=== PATIENT | female | born 2005 | race Caucasian/White ===

== ENCOUNTER 2023-12-09 21:40 | Outpatient (CLI) | payer BC, SELFPAY ==
[2023-12-09 21:46] VITALS: BP 146/92; PULSE 75
[2023-12-09 21:52] VITALS: BMI 40.1
[2023-12-09 22:02] VITALS: BP 137/81; PULSE 61
[2023-12-09 22:17] VITALS: BP 137/81; PULSE 61; RESP 15
== END 2023-12-09 22:23 | disposition home or self-care (01) ==
LOC: OPOB 21:40 → OBGYN 21:41
PROVIDERS: Visit Provider Family Medicine
DX: O36.8190 Decreased fetal movements, unspecified trimester, not applicable or unspecified (principal); Z3A.00 Weeks of gestation of pregnancy not specified
CPT/HCPCS: 59025; 99211

== ENCOUNTER 2023-12-14 00:50 | Inpatient (IN) | payer BC, SELFPAY ==
[2023-12-13 23:12] VITALS: BMI 40.2
[2023-12-14] MEDS: lactated ringers 1,000 ML 999 ML IV (00:55)
[2023-12-14] MEDS: ceFAZolin 2,000 MG in sodium chloride 0.9% (plus) 50 ML 100 MG IV (01:05)
[2023-12-14 01:07] LABS: Basophils # 0.1 10^3/uL (0.0-0.1); Basophils % 0.5 %; Eosinophils # 0.1 10^3/uL (0.0-0.8); Eosinophils % 0.5 %; Hematocrit 38.2 % (36-47); Lymphocytes # 4.8 10^3/uL (1.5-6.5); Lymphocytes % 28.5 %; Mean Corpuscular Hemoglobin 26.1 pg (27-33); Mean Corpuscular Volume 79.3 fl (85-98); Mean Platelet Volume 12.6 fL (7.4-10.4); Monocytes # 1.4 10^3/uL (0.2-0.9); Monocytes % 8.6 %; Neutrophils # 10.18 10^3/uL (1.8-8.0); Nucleated Red Blood Cells % 0 %; Platelet Count 280 10^3/cmm (157-399); Red Blood Count 4.82 10^6/uL (3.85-5.65); Red Cell Distribution Width 12.9 % (12.1-15.1); White Blood Count 16.71 10^3/uL (4.5-13.0)
[2023-12-14 01:12] VITALS: RESP 20
[2023-12-14] MEDS: fentaNYL 50 mcg/mL INJ 2mL IVP (01:12)
--- NOTE | 2023-12-14 01:54 | P.ANESUD_ITS ---
Pre-Anesthetic Update Pre-Anesthetic Assessment: Date of Surgery/Procedure: 12/14/23 Preop Lanie gnosis: labor pains Proposed Procedure: epidural Any changes to Pre-Anesthetic Assessment?: No Labs Last 48hrs: Short CBC 12/14/23 Range/Units 00:40 WBC 16.71 H (4.5-13.0) 10^3/ uL Hgb 12.60 (12.4-14.8) g/dL Hct 38.2 (36-47) % MCV 79.3 L (85-98) fl Plt Count 280 (157-399) 10^3/c mm Neut % (Auto) 61.0 % Neut # (Auto) 10.18 H (1.8-8.0) 10^3/u L Vitals: Respiratory Rate 20 H 12/14/23 01:12 Respiratory Effort Spontaneous, Non- Labored 12/14/23 01:12 Respiratory Depth Normal 12/14/23 01:12 Respiratory Patter n Normal 12/14/23 01:12 Exam: Pre-Anes Outpt Exam: alert, oriented x 3, clear to auscultation bilaterally and regular rate & rhythm Cardiac Studies: No Data to Display
[2023-12-14] MEDS: ROPivacaine syringe 100 MG/50 ML SYRINGE 10 MG EPIDURAL (02:30)
--- NOTE | 2023-12-14 02:38 | P.ANES_ITS ---
Anesthesia Procedures Procedure/Date: 12/14/23 epidural Procedure Narrative: epidural complete on second attempt, bolus given, epidural pump initiated with REFRIGERATOR ROOM CLERK education given, vitals taken during procedure and satisfactory throughout, patient admits to decrease pain, report of procedure to OB RN Epidural: Time Out Performed: Yes Consents Signed: Procedure Consent Consent: requested by attending/covering physician, from patient, risks and benefits reviewed and patient agrees to proceed Lumbar Level: L3-L4 Epidural position: sitting Epidural procedure: sterile prep of area, 1% lidocaine to numb the area (3 mL), 18 g needle, negative for paresthesia passed, neg for paresthesia, test dose given, 1.5% xylocaine 1:200k epi (5 mL), 0.2% Ropivacaine bolus ml (5 mL), placed PCEA, no systemic response, sterile dressing applied, L.U.D. no apparent complications and 0.2% Ropiavacaine @ mls/hr (13 mL/hr)
[2023-12-14] MEDS: dextrose 5%-lactated ringers 1,000 ML 125 ML IV (03:00)
--- NOTE | 2023-12-14 04:35 | PM.OPHPUD ---
Labor & Delivery H&P Update Date of Procedure: December 14, 2023 Date H&P Performed: 12/11/23 Admission Diagnosis: Preop diagnosis: labor pains
--- NOTE | 2023-12-14 04:36 | PM.DELIVERY ---
Delivery Note: Date of delivery: December 14, 2023 Estimated blood loss (mL): 175 Pre-Delivery Course: labs: Blood type B+ antibody negative, hepatitis B nonreactive, hepatitis C nonreactive, HIV nonreactive, rubella immune, GC chlamydia negative, she passed her glucose tolerance test, she was GBS positive. Rupture membranes was approximately 3 hours prior to delivery. She received 1 dose of Ancef prior to delivery. Delivery: This is a 18-year-old G1, P0 at 38 weeks 4 days gestation who presented to labor and delivery in active labor. She had spontaneous rupture of membranes with clear fluid. She received an epidural for pain management. Her labor progressed rather quickly and she had a normal spontaneous vaginal delivery of a viable male weight 3270 g Apgars 8 and 9 over an intact perineum. The infant was suctioned at delivery and placed on the mother's chest. The cord was clamped and cut. The placenta was delivered grossly intact and normal to inspection. There was a first-degree vaginal laceration that was sutured using 3-0 chromic. Mother and were doing well after delivery. Coding Level of Care Code Acute Code for Chg Fwd
--- NOTE | 2023-12-14 07:11 | PC.NURSE ---
See Centricity for vital signs
[2023-12-14] MEDS: prenatal vitamin Capsule 1 CAP PO (08:55)
[2023-12-14] MEDS: ibuprofen 800 mg tablet PO ×3 (08:55→21:34)
[2023-12-14] MEDS: docusate sodium 100 mg Capsule PO ×2 (08:56→18:18)
[2023-12-14 09:15] VITALS: BP 149/81; PULSE 70; RESP 18; TEMP 37.2; O2SAT 97
[2023-12-14 10:15] VITALS: BP 146/82; PULSE 52; RESP 16; TEMP 37.7; O2SAT 96
[2023-12-14 12:04] LABS: Amphetamines Screen Urine Negative (Negative); Barbiturates Screen Urine Negative (Negative); Benzodiazepines Screen Urine Negative (Negative); Cocaine Screen Urine Negative (Negative); Opiate Screen Urine Negative (Negative); PCP Screen Urine Negative (Negative); THC Screen Urine Negative (Negative)
[2023-12-14 12:46] LABS: Rapid Plasma Reagin Syphilis Nonreactive (Nonreactive)
[2023-12-14 14:15] VITALS: BP 150/74; PULSE 59; RESP 16; TEMP 37.4; O2SAT 95
--- NOTE | 2023-12-14 14:17 | ANE.PACU2 ---
Inpatient post-anesthesia follow up: Airway intact: Yes Vital signs: Temperature 100 F Pulse Rate 52 Respiratory Rate 16 Blood Pressure 146/82 Pulse Oximetry 96 Oxygen Delivery Me thod Room Air Oxygen Flow Rate Fraction of Inspir ed Oxygen Hydration adequate: Yes Nausea and vomiting: No Pain level: 1 Mental status: Baseline Additional Comments: States epidural never really provided any relief Epidural Start/End: Epidural Start Date: 12/14/23 Epidural Start Time: 02:03 Epidural End Date: 12/14/23 Epidural End Time: 04:36
[2023-12-14 17:09] LABS: Hematocrit 32.5 % (36-47); Mean Corpuscular HGB Conc 32.9 g/dL (30-55); Mean Corpuscular Hemoglobin 26.8 pg (27-33); Mean Corpuscular Volume 81.5 fl (85-98); Mean Platelet Volume 12.9 fL (7.4-10.4); Platelet Count 158 10^3/cmm (157-399); Red Blood Count 3.99 10^6/uL (3.85-5.65); Red Cell Distribution Width 13.1 % (12.1-15.1); White Blood Count 17.09 10^3/uL (4.5-13.0)
[2023-12-14 22:12] VITALS: BP 138/86; PULSE 76; RESP 16; TEMP 36.7; O2SAT 97
[2023-12-15 04:26] VITALS: BP 130/69; PULSE 62; RESP 16; TEMP 36.7; O2SAT 97
[2023-12-15 09:45] VITALS: BP 144/88; PULSE 69; RESP 17; TEMP 36.5; O2SAT 97
[2023-12-15] MEDS: prenatal vitamin Capsule 1 CAP PO (10:33)
[2023-12-15] MEDS: ibuprofen 800 mg tablet PO ×3 (10:34→20:53)
[2023-12-15] MEDS: docusate sodium 100 mg Capsule PO ×2 (10:34→20:53)
[2023-12-15 16:45] VITALS: BP 158/91; PULSE 69; RESP 18; TEMP 37.3
[2023-12-15] MEDS: benzocaine-menthol 78 gm Canister 1 SPRAY TOPICAL (16:58)
--- NOTE | 2023-12-15 18:05 | P.PN_ITS ---
Subjective 2 Subjective: day #1 doing well. She is voiding, stooling, tolerating a regular diet. She does have some stinging when she urinates. She has had some moderately elevated blood pressures so we are going to begin monitoring her urine output. Vitals/I&O/Wt Last Vital Signs Temp 99.2 F 12/15/23 16:45 Pulse 69 12/15/23 16:45 Resp 18 12/15/23 16:45 BP 158/91 12/15/23 16:45 Pulse Ox 97 12/15/23 09:45 O2 Del Method Room Air 12/15/23 16:45 Weight last 48 hrs Weight 93.44 kg Physical Exam 2 Narrative: Alert and oriented, standing up in the room, heart regular rate and rhythm, lungs clear to auscultation bilaterally, abdomen is soft and nontender, fundus is firm, extremities have some edema but no calf tenderness. Urinary Catheter Management: [place] Latex: Cath Placed During This Visit: yes, but has since been removed by the nurse Reason for Continuing Indwelling Catheter: Decision to DC Catheter Urinary Catheter Date of Insertion: 12/14/23 Urinary Catheter Time of Insertion: 03:00 Date Urinary Catheter Removed: 12/14/23 Time Urinary Catheter Discontinued: 04:28 Data 12/14/23 17:00 12/14/23 05:42 A&P Assessment and plan (1) (normal spontaneous vaginal delivery): Routine care (2) Hypertension, condition or complication: Strict urine output Attestations 2 Medical Necessity Statement*: Routine care Coding Level of Care Code Acute Code for Chg Fwd Diagnoses (normal spontaneous vaginal delivery) O80 Hypertension, condition or complication O16.5
[2023-12-15 22:13] VITALS: BP 141/84; PULSE 58; RESP 16; TEMP 36.4; O2SAT 97
[2023-12-16 06:00] VITALS: BP 142/87; PULSE 67; RESP 18; TEMP 36.7; O2SAT 98
[2023-12-16] MEDS: prenatal vitamin Capsule 1 CAP PO (10:05)
[2023-12-16] MEDS: ibuprofen 800 mg tablet PO (10:06)
[2023-12-16] MEDS: docusate sodium 100 mg Capsule PO (10:06)
[2023-12-16 10:12] VITALS: BP 132/88; PULSE 68; RESP 17; TEMP 36.7; O2SAT 97
--- NOTE | 2023-12-16 10:34 | P.DS_ITS ---
Discharge Providers Date of Admission: 12/14/23 00:50 Date of Discharge: December 16, 2023 Attending Provider at Admission: Erendira Mueller MD Attending Provider at Discharge: Erendira Mueller MD Primary Care Provider: Erendira Mueller MD Diagnoses at Discharge Discharge Diagnosis (1) (normal spontaneous vaginal delivery): Status: Acute (2) Hypertension, condition or complication: Status: Acute Reason for Visit Reason for Visit: Lost mucous plug and contractions Hospital Course Hospital Course This is a 18-year-old G1 now P1 who had a normal spontaneous vaginal delivery of a viable male infant. Mother and infant have done well after delivery. Mother has had occasionally mildly elevated blood pressures after delivery. Her urine output has been good. She is day #2 and is asymptomatic. Physical Exam Narrative: Alert and oriented, sitting up in bed with infant, heart regular rate and rhythm, lungs clear to auscultation bilaterally, abdomen is soft and nontender, fundus is firm, extremities have 2+ edema but no calf tenderness. Urinary Catheter Management: [place] Latex: Cath Placed During This Visit: yes, but has since been removed by the nurse Reason for Continuing Indwelling Catheter: Decision to DC Catheter Urinary Catheter Date of Insertion: 12/14/23 Urinary Catheter Time of Insertion: 03:00 Date Urinary Catheter Removed: 12/14/23 Time Urinary Catheter Discontinued: 04:28 Discharge Data Studies Completed and Pending Pending at discharge Category Date Time Status RPR with Reflex to Titer Routine Lab 12/14/23 11:28 Received Retype for Patiets ABO/Rh Routine Lab 12/14/23 04:57 Ordered Laboratory Results WBC 17.09 10^3/uL (4.5-13.0) H 12/14/23 17:00 RBC 3.99 10^6/uL (3.85-5.65) 12/14/23 17:00 Hgb 10.70 g/dL (12.4-14.8) L 12/14/23 17:00 Hct 32.5 % (36-47) L 12/14/23 17:00 MCV 81.5 fl (85-98) L 12/14/23 17:00 MCH 26.8 pg (27-33) L 12/14/23 17:00 MCHC 32.9 g/dL (30-55) 12/14/23 17:00 RDW 13.1 % (12.1-15.1) 12/14/23 17:00 Plt Count 158 10^3/cmm (157-399) D 12/14/23 17:00 MPV 12.9 fL (7.4-10.4) H 12/14/23 17:00 Neut % (Auto) 61.0 % 12/14/23 00:40 Lymph % (Auto) 28.5 % 12/14/23 00:40 [place] % (Auto) 8.6 % 12/14/23 00:40 Eos % (Auto) 0.5 % 12/14/23 00:40 Baso % (Auto) 0.5 % 12/14/23 00:40 Neut # (Auto) 10.18 10^3/uL (1.8-8.0) H 12/14/23 00:40 Lymph # (Auto) 4.8 10^3/uL (1.5-6.5) 12/14/23 00:40 [place] # (Auto) 1.4 10^3/uL (0.2-0.9) H 12/14/23 00:40 Eos # (Auto) 0.1 10^3/uL (0.0-0.8) 12/14/23 00:40 Baso # (Auto) 0.1 10^3/uL (0.0-0.1) 12/14/23 00:40 Nucleated RBC % (auto) 0 % 12/14/23 00:40 Nucleated RBCs # 0.0 /100WBC 12/14/23 00:40 Creatinine Cancelled 12/14/23 05:42 Specific [place] Cancelled 12/14/23 05:42 Urine pH Cancelled 12/14/23 05:42 Urine Oxidant Cancelled 12/14/23 05:42 Urine Opiates Screen Negative ng/mL (Negative) 12/14/23 Unknown Urine Opiates Level Cancelled 12/14/23 05:42 Urine Oxycodone Cancelled 12/14/23 05:42 U Methadone Metabolites Cancelled 12/14/23 05:42 Barbiturates Cancelled 12/14/23 05:42 Ur Barbiturates Screen Negative ng/mL (Negative) 12/14/23 Unknown Phencyclidine (PCP) Cancelled 12/14/23 05:42 Ur Phencyclidine Scrn Negative ng/mL (Negative) 12/14/23 Unknown Amphetamines Cancelled 12/14/23 05:42 Ur Amphetamines Screen Negative ng/mL (Negative) 12/14/23 Unknown Benzodiazepines Cancelled 12/14/23 05:42 U Benzodiazepines Scrn Negative ng/mL (Negative) 12/14/23 Unknown Cocaine Metabolite Cancelled 12/14/23 05:42 Urine Cocaine Screen Negative ng/mL (Negative) 12/14/23 Unknown U Marijuana (THC) Screen Negative ng/mL (Negative) 12/14/23 Unknown U Marijuana Metabolites Cancelled 12/14/23 05:42 Abn Spec Valid Drug Scn Cancelled 12/14/23 05:42 Urine Drug Screen Note Cancelled 12/14/23 05:42 Ur Drug Screen Comment Cancelled 12/14/23 05:42 RPR Nonreactive (Nonreactive) 12/14/23 11:28 Blood Type B Positive 12/13/23 00:40 Rho(D) Type Rh positive 12/13/23 00:40 Antibody Screen Negative 12/13/23 00:40 Vitals Last Vital Signs Temp 98.1 F 12/16/23 10:12 Pulse 68 12/16/23 10:12 Resp 17 12/16/23 10:12 BP 132/88 12/16/23 10:12 Pulse Ox 97 12/16/23 10:12 O2 Del Method Room Air 12/16/23 10:12 Discharge Plan Discharge Patient Disposition: Home Condition: Stable Prescriptions: Continued [id number] 1 mg Tablet 1 tab PO DAILY Discharge Orders: Discharge Order (Routine); Ordered 12/16/23 Ordered By: Erendira Mueller Referrals: Erendira Mueller MD [Primary Care Provider] - 1 month Discharge Diet: Usual diet Discharge Activity: Limit activity as instructed Patient Instructions: Depression (GEN), Expression, Collection and Storage of Breast Milk (DC), and Nipple Soreness (ED), and Breast Engorgement (DC), and Plugged Ducts (DC), How to Tell if Your Baby is Getting Enough Breast Milk (DC), and Your Diet (DC), Bleeding (DC), Preeclampsia and Eclampsia After Delivery (GEN), Breast Care for the Mother (DC), OB Discharge Report, OB Food/Drug Interaction Guide, OB Care at Home, Opioid Safety, OB Home Care, OB Vaginal Deliveries Activity Restrictions/Additional Instructions: Nothing per vagina for 6 weeks. Discharge Attestations Time Spent in Discharge Care*: less than 30 min Quality Metrics Clinical Quality Measures [ No reported AMI, CVA or VTE this stay] Coding Level of Care Code Acute Code for Chg Fwd Diagnoses (normal spontaneous vaginal delivery) O80 Hypertension, condition or complication O16.5
[2023-12-16 12:00] VITALS: BP 132/88; PULSE 68; RESP 17; TEMP 36.7; O2SAT 97
[2023-12-17 16:35] LABS: RPR w(Moniotor) w/REFL Titer NON-REACTIVE (NON-REACTIVE)
== END 2023-12-16 12:15 | disposition home or self-care (01) | DRG 807 ==
LOC: OBGYN 04:48 → OPOB 12-15 09:33 → OBGYN 12-15 09:33
PROVIDERS: Family Medicine; Admitting Provider Family Medicine; PCP Family Medicine; Visit Provider Family Medicine
DX: O99.824 Streptococcus B carrier state complicating childbirth (principal); Z37.0 Single live birth; O70.0 First degree perineal laceration during delivery; Z3A.38 38 weeks gestation of pregnancy; O16.5 Unspecified maternal hypertension, complicating the puerperium
CPT/HCPCS: 36415; 51702; 59025; 59409; 80306; 85025; 85027; 86592; 86850; 86900; 98960; 99211; J0690; J2795; J3010; J7120; J7121

== ENCOUNTER 2024-09-20 16:00 | Emergency (ER) | payer BC, SELFPAY ==
[2024-09-20 16:19] VITALS: BP 131/88; PULSE 98; RESP 15; TEMP 36.9; O2SAT 100; BMI 36.1
[2024-09-20 16:27] LABS: Basophils # 0.1 10^3/uL (0.0-0.1); Basophils % 0.6 %; Eosinophils # 0.1 10^3/uL (0.0-0.8); Hematocrit 43.5 % (36-47); Lymphocytes # 3.2 10^3/uL (0.8-4.8); Lymphocytes % 28.8 %; Mean Corpuscular Volume 80.4 fl (85-98); Mean Platelet Volume 10.9 fL (7.4-10.4); Monocytes # 0.8 10^3/uL (0.2-0.9); Monocytes % 7.6 %; Neutrophils # 6.71 10^3/uL (1.8-7.7); Neutrophils % 61.5 %; Nucleated Red Blood Cells % 0 %; Platelet Count 394 10^3/cmm (157-399); Red Blood Count 5.41 10^6/uL (3.85-5.65); Red Cell Distribution Width 13.4 % (12.1-15.1); White Blood Count 10.92 10^3/uL (3.29-11.43)
--- NOTE | 2024-09-20 16:47 | W.ED.FEMALGU ---
HPI - Female Genitourinary General: Chief complaint: Vaginal Bleeding Stated complaint: abn vaginal bleeding Time Seen by Provider: 09/20/24 16:40 Source: patient Mode of arrival: ambulatory Limitations: no limitations History of Present Illness: 19-year-old female states that she thought she may be she states that she is 8 days late on her period she started having bleeding today states she is passing clots heavier bleeding with cramping states that the cramping stopped her bleeding is just spotting currently states she took 2 home tests were negative was concerned she has had no vomiting diarrhea Associated symptoms: Reports abdominal pain; Deny headache(s) or nausea Date of Last Menstrual Period: 08/08/24 Related Data Allergies Allergy/AdvReac Type Severity Reaction Status Date / Time amoxicillin Allergy ADR-Abdominal Verified 09/20/24 16:19 Pain Review of Systems Const: Denies: fever(s), chills, body aches or change in appetite ENMT: Denies: throat pain or dental pain Card: Denies: chest pain Resp: Denies: dyspnea GI: Reports: abdominal pain; Denies: nausea, vomiting or diarrhea : Reports: vaginal bleeding; Denies: dysuria Musc: Denies: neck pain or back pain Skin/Breast: Denies: rash Neuro: Denies: headache(s) [facility] ED Female Reproductive History: Date of last menstrual period: 08/08/24 Physical Exam Const: COMMON NORMALS: no acute distress, patient oriented x3 and healthy appearing HENMT: COMMON NORMALS: normocephalic and atraumatic HEAD & SCALP: normocephalic and atraumatic Eye: COMMON NORMALS: conjunctivae normal CONJUNCTIVA: Yes conjunctivae normal Neck/C-Spine: COMMON NORMALS: full ROM and supple Chest: COMMONS NORMALS: normal inspection of the chest Resp: COMMON NORMALS: normal respiratory effort Cardio: COMMON NORMALS: regular rate, regular rhythm and No murmurs present (Cardio) RATE: regular rate RHYTHM: regular rhythm GI: COMMON NORMALS: Normal to inspection, nondistended, normoactive bowel sounds present, Soft to palpation, non-tender and no masses PALPATION: Yes Soft to palpation Extremity: COMMON NORMALS: normal to inspection and full ROM Neuro: COMMON NORMALS: patient oriented x3, moves all extremities and no focal motor deficits Psych: COMMON NORMALS: mental status grossly normal, Normal thought process present and cooperative THOUGHT PROCESS: Normal thought process present Skin: COMMON NORMALS: no rashes or lesions noted and no wounds GENERAL SKIN EXAM: no rashes or lesions noted Course Vital Signs: Vital signs: Vital Signs Temperature 98.5 F 09/20/24 16:19 Pulse Rate 98 09/20/24 16:19 Respiratory Rate 15 09/20/24 16:19 Blood Pressure 131/88 09/20/24 16:19 Pulse Oximetry 100 09/20/24 16:19 MDM - Female Medical Decision Making Patient presents here with vaginal bleeding her bleeding has subsided here hemoglobin is normal she is not she is stable for discharge follow-up with PCP return if worsening Medical Records I reviewed the patient's medical records. Lab Data I reviewed the patient's lab results. 09/20/24 16:22 09/20/24 16:22 Laboratory Results WBC 10.92 10^3/uL (3.29-11.43) 09/20/24 16:22 RBC 5.41 10^6/uL (3.85-5.65) 09/20/24 16:22 Hgb 13.50 g/dL (11.27-16.99) 09/20/24 16:22 Hct 43.5 % (36-47) 09/20/24 16:22 MCV 80.4 fl (85-98) L 09/20/24 16:22 MCH 25.0 pg (27-33) L 09/20/24 16:22 MCHC 31.0 g/dL (30-55) 09/20/24 16:22 RDW 13.4 % (12.1-15.1) 09/20/24 16:22 Plt Count 394 10^3/cmm (157-399) 09/20/24 16:22 MPV 10.9 fL (7.4-10.4) H 09/20/24 16:22 Neut % (Auto) 61.5 % 09/20/24 16:22 Lymph % (Auto) 28.8 % 09/20/24 16:22 [place] % (Auto) 7.6 % 09/20/24 16:22 Eos % (Auto) 1.0 % 09/20/24 16:22 Baso % (Auto) 0.6 % 09/20/24 16:22 Neut # (Auto) 6.71 10^3/uL (1.8-7.7) 09/20/24 16:22 Lymph # (Auto) 3.2 10^3/uL (0.8-4.8) 09/20/24 16:22 [place] # (Auto) 0.8 10^3/uL (0.2-0.9) 09/20/24 16:22 Eos # (Auto) 0.1 10^3/uL (0.0-0.8) 09/20/24 16:22 Baso # (Auto) 0.1 10^3/uL (0.0-0.1) 09/20/24 16:22 Nucleated RBC % (auto) 0 % 09/20/24 16:22 Nucleated RBCs # 0.0 /100WBC 09/20/24 16:22 Sodium 136 mmol/L (136-145) 09/20/24 16:22 Potassium 3.9 mmol/L (3.5-5.1) 09/20/24 16:22 Chloride 104 mmol/L (98-107) 09/20/24 16:22 Carbon Dioxide 22 mmol/L (22-29) 09/20/24 16:22 Anion Gap 13.9 (5-19) 09/20/24 16:22 BUN 11 mg/dL (6-20) 09/20/24 16:22 Creatinine 0.5 mg/dL (0.5-0.9) 09/20/24 16:22 GFR Calculation 155.7 mL/min (90-130) H 09/20/24 16:22 Glucose 95 mg/dL (65-115) 09/20/24 16:22 Calculated Osmolality 281 mOsm/kg (285-295) L 09/20/24 16:22 Calcium 9.0 mg/dL (8.5-10.5) 09/20/24 16:22 Total Bilirubin 0.2 mg/dL (0.15-1.2) 09/20/24 16:22 AST 13 U/L (0-32) 09/20/24 16:22 ALT 29 U/L (0-33) 09/20/24 16:22 Alkaline Phosphatase 82 U/L (35-105) 09/20/24 16:22 Total Protein 7.4 g/dL (6.6-8.7) 09/20/24 16:22 Albumin 3.9 g/dL (3.5-5.2) 09/20/24 16:22 Globulin 3.5 g/dL (1.3-4.6) 09/20/24 16:22 Ser , Semi-Qnt 1.00 mIU/mL 09/20/24 16:22 No radiology studies performed this visit Discharge Plan Discharge Patient Disposition: Home Clinical Impression: Vaginal bleeding Condition: Stable Discharge Orders: Discharge ED (Routine); Ordered 09/20/24 Ordered By: Edward Aguilar Referrals: Erendira Mueller MD [Primary Care Provider] - 4-7 days Discharge Diet: Advance as tolerated Discharge Activity: Resume usual activity Patient Instructions: Abnormal (Dysfunctional) Uterine Bleeding (ED) Coding Level of Care Code ED [employer] Utility Worker for Arabella Ribeiro
[2024-09-20 16:49] LABS: Alanine Aminotransferase 29 U/L (0-33); Albumin Level 3.9 g/dL (3.5-5.2); Alkaline Phosphatase 82 U/L (35-105); Anion Gap 13.9 (5-19); Aspartate Amino Transferase 13 U/L (0-32); Blood Urea Nitrogen 11 mg/dL (6-20); Carbon Dioxide 22 mmol/L (22-29); Chloride 104 mmol/L (98-107); Creatinine Clr Calc Pharmacy 171.0166; Globulin 3.5 g/dL (1.3-4.6); Glomerular Filtration Rate 155.7 mL/min (90-130); Glucose 95 mg/dL (65-115); Osmolality Calculated 281 mOsm/kg (285-295); Potassium 3.9 mmol/L (3.5-5.1); Sodium 136 mmol/L (136-145); Total Bilirubin 0.2 mg/dL (0.15-1.2); Total Protein 7.4 g/dL (6.6-8.7)
[2024-09-20 17:31] VITALS: BP 114/77; PULSE 72; RESP 16; O2SAT 97
== END 2024-09-20 17:31 | disposition home or self-care (01) ==
PROVIDERS: Emergency Provider Emergency Medicine; PCP Family Medicine
DX: N93.9 Abnormal uterine and vaginal bleeding, unspecified (principal)
CPT/HCPCS: 80053; 84702; 85025; 99283

== ENCOUNTER 2025-06-22 16:30 | Outpatient (CLI) | payer BC, SELFPAY ==
[2025-06-22 16:48] VITALS: BP 118/71; PULSE 82; RESP 17; O2SAT 98
== END 2025-06-22 16:48 | disposition home or self-care (01) ==
LOC: OPOB 16:31 → OBGYN 16:32
PROVIDERS: PCP Family Medicine; Visit Provider Family Medicine
DX: O36.8190 Decreased fetal movements, unspecified trimester, not applicable or unspecified (principal); Z3A.00 Weeks of gestation of pregnancy not specified
CPT/HCPCS: 99211

== ENCOUNTER 2025-11-07 16:20 | Inpatient (IN) | payer BC, SELFPAY ==
[2025-06-22 16:48] VITALS: PULSE 82; RESP 17
[2025-11-07] VITALS (19 sets, daily range): BP systolic 118–171; BP diastolic 59–81; PULSE 49–83; RESP 16–18; TEMP 36.3–36.8; O2SAT 98–100
[2025-11-07 16:48] LABS: Hematocrit 35.0 % (36-47); Hemoglobin 11.00 g/dL (11.27-16.99); Mean Corpuscular HGB Conc 31.4 g/dL (30-55); Mean Corpuscular Hemoglobin 23.5 pg (27-33); Mean Corpuscular Volume 74.8 fl (85-98); Nucleated Red Blood Cells % 0 %; Platelet Count 300 10^3/cmm (157-399); Red Blood Count 4.68 10^6/uL (3.85-5.65); White Blood Count 11.22 10^3/uL (3.29-11.43)
[2025-11-07] MEDS: ceFAZolin 2,000 mg SDV 2000 MG IVP (17:04)
[2025-11-07] MEDS: fentaNYL 50 mcg/mL INJ 2mL IVP ×2 (17:12→19:33)
--- NOTE | 2025-11-07 20:41 | PM.OPHPUD ---
Labor & Delivery H&P Update Date of Procedure: November 07, 2025 Date H&P Performed: 11/05/25 Admission Diagnosis: IUP at 38 weeks 1 day gestation Active labor Planned procedure: Expectant management of labor and delivery
--- NOTE | 2025-11-07 20:43 | P.PCNOB_ITS ---
Delivery Note: Date of delivery: November 07, 2025 Procedure: Normal spontaneous vaginal delivery Estimated blood loss (mL): 150 Pre-Delivery Course: The patient had routine care at [facility]. There were no complications during the . labs: Blood type B+ antibody negative, hepatitis B nonreactive, hepatitis C nonreactive, HIV nonreactive, r ubella immune, GC chlamydia negative, RPR nonreactive, UDS negative, she passed her glucose tolerance test, she was GBS positive. Delivery: This is a 20-year-old G3, P1 at 38 weeks 1 day gestation who presented to labor and delivery in active labor. She declined an epidural and received fentanyl approximately 45 minutes prior to delivery. She was positive for GBS and received 1 dose of Ancef. Rupture of membranes was meconium stained fluid and was 5 minutes prior to delivery. The patient only had 2 push through 2 contractions to have a normal spontaneous vaginal delivery of a viable male infant weight 3445 g, 7 pounds 10 ounces, Apgars 7 and 9 over an intact perineum. The was suctioned at delivery and placed on mother's chest. After the 1 minute nicole the cord was clamped and cut. The placenta was delivered grossly intact and normal to inspection. There were no lacerations. Mother and were doing well after delivery. History History History 3 Term 2 Miscarriages/Ectopic 1 Living Children 2 A&P Assessment and plan 1. (normal spontaneous vaginal delivery): PDMP PDMP Reviewed: Not Reviewed Coding Level of Care Code Acute Code for Chg Fwd Diagnoses (normal spontaneous vaginal delivery) O80
[2025-11-07] MEDS: benzocaine-menthol 78 gm Canister 1 SPRAY TOPICAL (21:42)
[2025-11-08] VITALS (7 sets, daily range): BP systolic 100–126; BP diastolic 55–82; PULSE 60–68; RESP 16–18; TEMP 36.7–36.9; O2SAT 97–99
[2025-11-08] MEDS: PRENATAL VIT NO.130/IRON/FOLIC 1 EACH TABLET PO (06:39)
[2025-11-08 09:26] LABS: Hematocrit 33.7 % (36-47); Hemoglobin 10.50 g/dL (11.27-16.99); Mean Corpuscular HGB Conc 31.2 g/dL (30-55); Mean Corpuscular Hemoglobin 23.0 pg (27-33); Mean Corpuscular Volume 73.9 fl (85-98); Platelet Count 264 10^3/cmm (157-399); Red Blood Count 4.56 10^6/uL (3.85-5.65); White Blood Count 14.76 10^3/uL (3.29-11.43)
--- NOTE | 2025-11-08 10:54 | P.DS_ITS ---
Discharge Providers Date of Admission: 11/07/25 16:20 Date of Discharge: November 08, 2025 Attending Provider at Admission: Erendira Mueller MD Attending Provider at Discharge: Erendira Mueller MD Primary Care Provider: Erendira Mueller MD Diagnoses at Discharge Discharge Diagnosis 1. (normal spontaneous vaginal delivery): Reason for Visit Reason for Visit: CTX Hospital Course Hospital Course This is a 20-year-old G3 now P2 who had a normal spontaneous vaginal delivery of a viable male infant. On day #1 she is doing well. She is ambulating, tolerating a regular diet, has good pain control, and average vaginal bleeding. Physical Exam Narrative: Resting in bed, alert and oriented, heart regular rate and rhythm, lungs clear to auscultation bilaterally, abdomen is soft and nontender, fundus is firm, extremities have 1+ edema but no calf tenderness Discharge Data Studies Completed and Pending Laboratory Results WBC 14.76 10^3/uL (3.29-11.43) H 11/08/25 09:00 RBC 4.56 10^6/uL (3.85-5.65) 11/08/25 09:00 Hgb 10.50 g/dL (11.27-16.99) L 11/08/25 09:00 Hct 33.7 % (36-47) L 11/08/25 09:00 MCV 73.9 fl (85-98) L 11/08/25 09:00 MCH 23.0 pg (27-33) L 11/08/25 09:00 MCHC 31.2 g/dL (30-55) 11/08/25 09:00 RDW 14.1 % (12.1-15.1) 11/08/25 09:00 Plt Count 264 10^3/cmm (157-399) 11/08/25 09:00 MPV 12.4 fL (7.4-10.4) H 11/08/25 09:00 Neut % (Auto) 64.3 % 11/07/25 16:40 Lymph % (Auto) 23.8 % 11/07/25 16:40 [place] % (Auto) 9.3 % 11/07/25 16:40 Eos % (Auto) 1.2 % 11/07/25 16:40 Baso % (Auto) 0.4 % 11/07/25 16:40 Neut # (Auto) 7.21 10^3/uL (1.8-7.7) 11/07/25 16:40 Lymph # (Auto) 2.7 10^3/uL (0.8-4.8) 11/07/25 16:40 [place] # (Auto) 1.0 10^3/uL (0.2-0.9) H 11/07/25 16:40 Eos # (Auto) 0.1 10^3/uL (0.0-0.8) 11/07/25 16:40 Baso # (Auto) 0.1 10^3/uL (0.0-0.1) 11/07/25 16:40 Nucleated RBC % (auto) 0 % 11/07/25 16:40 Nucleated RBCs # 0.0 /100WBC 11/07/25 16:40 Blood Type B Positive 11/07/25 16:40 Rho(D) Type Rh positive 11/07/25 16:40 Antibody Screen Negative 11/07/25 16:40 Vitals Last Vital Signs Temp 98.3 F 11/08/25 06:44 Pulse 63 11/08/25 06:44 Resp 16 11/08/25 06:44 BP 123/67 11/08/25 06:44 Pulse Ox 99 11/08/25 06:44 O2 Del Method Room Air 11/08/25 06:44 Discharge Plan Discharge Patient Disposition: Home Condition: Stable Referrals: Erendira Mueller MD [Primary Care Provider, [facility]] - 1 month Discharge Diet: Usual diet Discharge Activity: Limit activity as instructed Patient Instructions: Opioid Safety, Patient Portal & Mikael Instructions Activity Restrictions/Additional Instructions: Nothing per vagina for 6 weeks Discharge Attestations Time Spent in Discharge Care*: less than 30 min Quality Metrics Clinical Quality Measures [ No reported AMI, CVA or VTE this stay] Coding Level of Care Code Acute Code for Chg Fwd Diagnoses (normal spontaneous vaginal delivery) O80
== END 2025-11-08 21:25 | disposition home or self-care (01) | DRG 807 ==
LOC: OPOB 16:20 → OBGYN 16:20
PROVIDERS: Admitting Provider Family Medicine; PCP Family Medicine; Visit Provider Family Medicine
DX: O99.824 Streptococcus B carrier state complicating childbirth (principal); Z37.0 Single live birth; O77.0 Labor and delivery complicated by meconium in amniotic fluid; Z3A.38 38 weeks gestation of pregnancy
CPT/HCPCS: 36415; 59025; 59409; 85025; 85027; 86850; 86900; 99211; J0690; J3010; J7121; J9999